=== PATIENT | female | born 1975 | race Caucasian/White ===

== ENCOUNTER 2018-07-06 15:05 | Emergency (ER) | payer OTHER ==
[2018-07-06 15:22] VITALS: RESP 18; TEMP 98.4; O2SAT 100
[2018-07-06] MEDS ORDERED: Sodium Chloride 0.9% 1,000 ML IV STA (15:47)
--- NOTE | 2018-07-06 16:02 | ED PDOC ---
HPI: Abdomen Additional Complaint(s): 42 y/o F with a PMHx of DM complains of abdominal pain that began 1 week ago. Pain is described as burning and sharp, constant, radiates to LUQ sometimes, 8/10 intensity and associated with intermittent nausea. Pt had 2 episodes of vomiting yesterday, vomit was dark brown with a streak blood on it. Pt also had 2 episodes of vomiting today with NO mucus or blood. Pt reports not eating anything for days as she does not like to eat if not hungry. Last meal was 2 days ago. Pt reports constipation and has hard stools every 3-4 days. No ill contacts. No recent travel. Pt denies fever, headache, dizziness, chest pain, palpitations, alcohol intake, rash, diarrhea, blood in stools or rash. Pt has not taken her Metformin for 1 month. PMD: Dr Figueroa at [facility] Meds: Metformin 850mg BID -PMHx: DM since 12 y/o. -PSHx: 2 C-sections -OBGYN Hx: LMP 07/04/18, currently on her menses. Regular menses, sexually active with 1 man. 2x . -SHx: No tobacco, alcohol or rec drugs. <Reza Hernandez - Last Filed: 07/06/18 18:46> <Han Nieto - Last Filed: 07/06/18 18:55> Time Seen by Provider: 07/06/18 15:33 Chief Complaint (Nursing): Abdominal Pain Supervising Attending Note - Supervising Attending Note The Documented history was done by the: Physician Blueprint Maker The documented physical exam was done by the: Physician Blueprint Maker The documented procedures were done by the: Physician Blueprint Maker - Attestation: I have personally seen and examined this patient.: Yes I have fully participated in the care of the patient.: Yes I have reviewed all pertinent clinical information: Yes - Notes: Notes:: Abd pain upper. <Han Nieto - Last Filed: 07/06/18 18:55> Past Medical History Vital Signs: Last Vital Signs Temp 98.4 F 07/06/18 15:18 Pulse 96 H 07/06/18 15:18 Resp 18 07/06/18 15:18 BP 125/76 10/04/18 15:18 Pulse Ox 100 07/06/18 15:18 - Medical History PMH: Diabetes - Surgical History Surgical History: - Family History Family History: States: Unknown Family Hx - Social History Current smoker - smoking cessation education provided: No Alcohol: None Drugs: Denies - Immunization History Hx Tetanus Toxoid Vaccination: No Hx Influenza Vaccination: No Hx Pneumococcal Vaccination: No <Reza Hernandez - Last Filed: 07/06/18 18:46> Vital Signs: Last Vital Signs Temp 98.4 F 07/06/18 15:18 Pulse 96 H 07/06/18 15:18 Resp 18 07/06/18 15:18 BP 125/76 07/06/18 15:18 Pulse Ox 100 07/06/18 18:49 <Han Nieto - Last Filed: 07/06/18 18:55> - Home Medications Home Medications: Ambulatory Orders Medication Instructions Recorded metFORMIN [glucOPHAGE] 500 mg PO BID 07/14/17 Ibuprofen [Motrin] 1 tab PO TID PRN #30 tab 09/25/17 Famotidine [Pepcid] 20 mg PO DAILY PRN #6 tab 07/06/18 Ondansetron [Zofran] 4 mg PO Q8H PRN #6 tab 07/06/18 - Allergies Allergies/Adverse Reactions: Allergies Allergy/AdvReac Type Severity Reaction Status Date / Time No Known Allergies Allergy Verified 07/06/18 15:18 Review of Systems Constitutional: Negative for: Fever, Chills, Sweats ENT: Negative for: Ear Pain Cardiovascular: Negative for: Chest Pain, Palpitations Respiratory: Negative for: Cough, Shortness of Breath, Hemoptysis Gastrointestinal: Positive for: Nausea, Vomiting, Abdominal Pain, Constipation. Negative for: Diarrhea, Hematochezia Genitourinary Female: Negative for: Dysuria, Frequency, Hematuria, Vaginal Discharge, Vaginal Bleeding <Reza Hernandez - Last Filed: 07/06/18 18:46> Physical Exam - Physical Exam Appears: Positive for: No Acute Distress Head Exam: Positive for: ATRAUMATIC, NORMAL INSPECTION Eye Exam: Positive for: Normal appearance, EOMI ENT: Positive for: Normal ENT Inspection Neck: Positive for: Normal, Painless ROM. Negative for: Decreased ROM Cardiovascular/Chest: Positive for: Regular Rate, Rhythm Respiratory: Positive for: Normal Breath Sounds. Negative for: Rales, Rhonchi, Wheezing Gastrointestinal/Abdominal: Positive for: Bowel Sounds, Soft, Tenderness (on EPigastric and RUQ. ). Negative for: Mass, Distended, Guarding, Rebound Extremity: Negative for: Normal ROM, Tenderness, Pedal Edema Neurologic/Psych: Positive for: Alert, Oriented <Reza Hernandez - Last Filed: 07/06/18 18:46> - Physical Exam Gastrointestinal/Abdominal: Positive for: Soft, Tenderness, Other (no lower abd tenderness.) <Han Nieto - Last Filed: 07/06/18 18:55> - Laboratory Results Result Diagrams: 07/06/18 16:11 07/06/18 16:11 - ECG O2 Sat by Pulse Oximetry: 100 <Reza Hernandez - Last Filed: 07/06/18 18:46> - Laboratory Results Result Diagrams: 07/06/18 16:11 07/06/18 16:11 Interpretation Of Abn Labs: no acute - ECG Pulse Ox Interpretation: Normal - CT Scan/US US Other Rad Studies (CT/US): Read By Radiologist Other Rad Interpretation: no acute - Progress ED Course And Treament: 1852: Stable. AAOx3. Pain free. Tolerated PO. Resting with no issues. <Han Nieto - Last Filed: 07/06/18 18:55> Medical Decision Making Medical Decision Making: At 15:55 -> Pt was evaluated and examined with Dr Nieto. -Will order CBC, CMP, lipase, amylase, troponion, urine test and urinalysis. -US of epigastric and RUQ abdomen, and EKG will be performed. -Will initiate IV Pepcid and IV Normal Saline fluids. At 18:45: Labwork results was reviewed and were unremarkable. EKG is unremarkable. US Abdomen was benign. -Pt was educated on the importance of healthy eating habits, and instructed to follow a healthy low-fat diabetic diet. -Pt will be discharged home. <Reza Hernandez - Last Filed: 07/06/18 18:46> Disposition <Reza Hernandez - Last Filed: 07/06/18 18:46> - Patient ED Disposition Is Patient to be Admitted: Yes Counseled Patient/Family Regarding: Studies Performed, Diagnosis, Need For Followup, Rx Given - Disposition Disposition: Routine/Home Disposition Time: 18:54 <Han Nieto - Last Filed: 07/06/18 18:55> - Clinical Impression Clinical Impression: Abdominal pain, Vomiting - Disposition Referrals: [facility] [place] [Outside] - 07/10/18 Condition: STABLE Additional Instructions: Return if not better in 3 days. Prescriptions: Famotidine [Pepcid] 20 mg PO DAILY PRN #6 tab PRN Reason: Pain Ondansetron [Zofran] 4 mg PO Q8H PRN #6 tab PRN Reason: Nausea/Vomiting Instructions: Stomach Ache and Stomach Upset Forms: [facility] ED School/Work Excuse
[2018-07-06 16:18] LABS: BASO % 0.2 % (0.0-2.0); EOS % 0.5 % (0.0-4.0); LYMPH # 2.4 K/uL (1.0-4.3); LYMPH % 38.3 % (20.0-40.0); MEAN CELL VOLUME 89.3 fl (81.0-99.0); MEAN CORPUSCULAR HEMOGLOBIN 31.3 pg (27.0-31.0); MEAN CORPUSCULAR HGB CONC 35.1 g/dL (33.0-37.0); MONO # 0.4 K/uL (0.0-0.8); NEUT # 3.4 K/uL (1.8-7.0); RBC 4.46 Mil/uL (3.80-5.20); RED CELL DISTRIBUTION WIDTH 13.1 % (11.5-14.5); WHITE BLOOD COUNT 6.2 K/uL (4.8-10.8)
[2018-07-06 16:24] LABS: ALB/GLOB RATIO 1.3 (1.0-2.1); ALBUMIN 4.5 g/dL (3.5-5.0); ALT/SGPT 27 U/L (9-52); AST/SGOT 19 U/L (14-36); BLOOD UREA NITROGEN 16 mg/dl (7-17); CALCIUM 9.4 mg/dL (8.4-10.2); GFR NON-AFRICAN AMERICAN > 60; LIPASE 144 U/L (23-300)
--- NOTE | 2018-07-06 17:58 | US ---
Date of service: 07/06/2018 HISTORY: abd pain RUQ and epigastric COMPARISON: None available. TECHNIQUE: Sonographic evaluation of the right upper quadrant of the abdomen. FINDINGS: LIVER: Measures 16.1 cm in length and appears unremarkable. No focal hepatic mass identified. The main portal vein appears patent with normal directional flow. No intrahepatic bile duct dilatation. GALLBLADDER: No gallstones. No gallbladder wall thickening or pericholecystic edema. Negative sonographic Hanks's sign as assessed by the emergency management specialist. COMMON BILE DUCT: Measures 4 mm. PANCREAS: Not well-visualized. RIGHT KIDNEY: Measures 11.5 x 4.5 x 4.1 cm. No obstructing calculus or hydronephrosis identified. AORTA: Limited visualization appears grossly unremarkable. IVC: Limited visualization appears grossly unremarkable. OTHER FINDINGS: None . IMPRESSION: No acute pathology identified. Findings as above.
[2018-07-06 19:55] VITALS: BP 120/77; PULSE 88
--- NOTE | 2018-07-07 14:23 | CARD ---
APPROVED REPORT Date of service: 07/06/2018 EKG Measurement Heart [id number] <Conclusion> Normal sinus rhythm Normal ECG
== END 2018-07-06 19:50 | disposition home or self-care (01) ==
LOC: H.ER 15:05
DX: R10.32 Left lower quadrant pain (principal); R11.10 Vomiting, unspecified; E11.9 Type 2 diabetes mellitus without complications; Z79.84 Long term (current) use of oral hypoglycemic drugs
CPT/HCPCS: 76705; 80053; 80320; 81025; 83690; 84484; 85025; 93005; 96374; 99283; J7030